=== PATIENT | male | born 1990 | race African-American/Black ===

== ENCOUNTER 2017-08-05 08:48 | Emergency (ER) | payer MEDICAID ==
[~2017-08-05] VITALS: Ht 175.3 cm; Wt 86.2 kg
[2017-08-05] MEDS ORDERED: PANTOPRAZOLE 40 MG/10 ML VIAL IV STA (09:15)
[2017-08-05] MEDS ORDERED: SODIUM CHLORIDE 0.9% 1,000 ML IVB ONE (09:15)
[2017-08-05] MEDS ORDERED: IOHEXOL 300 MG/ML 100ML BOTTLE IJ ONE (09:23)
[2017-08-05 09:46] LABS: Basophils # (auto) 0 uL; Basophils % (auto) 0.7 % (0.0-2.0); Eosinophils # (auto) 0.2 uL; Eosinophils % (auto) 4.2 % (0.0-7.0); Hemoglobin 15.7 g/dL (13.5-17.5); Lymphocytes # (auto) 1.6 uL; Lymphocytes % (auto) 37.7 % (10.0-50.0); Mean Corpuscular Hemoglobin 30.5 pg (28.0-32.0); Mean Corpuscular Hgb Conc. 33.4 g/dL (32.0-36.0); Mean Corpuscular Volume 91.2 fL (80.0-100.0); Mean Platelet Volume 7.7 fL (6.9-10.8); Monocytes # (auto) 0.6 uL; Monocytes % (auto) 12.8 % (0.0-12.0); Neutrophils # (auto) 1.9 uL; Neutrophils % (auto) 44.6 % (37.0-80.0); Nucleated Red Blood Cells % 0.2 %; Platelet Count (auto) 261 10^3/uL (140-450); Red Cell Distribution Width 13.7 % (11.8-14.3); White Blood Cell 4.3 10^3/uL (4.4-10.8)
[2017-08-05 09:56] LABS: Albumin 4.2 g/dL (3.4-5.0); BUN/Creatinine Ratio 10.3; Bilirubin, Total 1.1 mg/dL (0.2-1.0); Calcium 9.2 mg/dL (8.5-10.1); Magnesium 2.5 mg/dL (1.6-2.6); Potassium 3.5 mmol/L (3.5-5.1); Total Protein 8.2 g/dL (6.4-8.2)
[2017-08-05 10:43] VITALS: BP 130/63
== END 2017-08-05 15:36 | disposition home or self-care (01) ==
LOC: ER 08:48
DX: R10.32 Left lower quadrant pain (principal); J45.909 Unspecified asthma, uncomplicated; F17.210 Nicotine dependence, cigarettes, uncomplicated
CPT/HCPCS: 36415; 74177; 80053; 82150; 82962; 83690; 83735; 85025; 94761; 96361; 96374; 99285; C9113; J7030; Q9967

== ENCOUNTER 2017-08-19 21:40 | Emergency (ER) | payer MEDICAID ==
[~2017-08-19] VITALS: Ht 175.3 cm; Wt 81.6 kg
[2017-08-19 22:32] VITALS: BP 110/79
== END 2017-08-20 04:22 | disposition left against medical advice (07) ==
LOC: ER 21:49
DX: K92.1 Melena (principal); Z53.21 Procedure and treatment not carried out due to patient leaving prior to being seen by health care provider

== ENCOUNTER 2017-09-14 08:46 | Emergency (ER) | payer MEDICAID ==
[~2017-09-14] VITALS: Ht 175.3 cm; Wt 85.7 kg
[2017-09-14 09:07] VITALS: BP 128/68
== END 2017-09-14 09:25 | disposition home or self-care (01) ==
LOC: ER 08:46
DX: J02.9 Acute pharyngitis, unspecified (principal); J45.909 Unspecified asthma, uncomplicated; F17.210 Nicotine dependence, cigarettes, uncomplicated